=== PATIENT | male | born 1990 | race Caucasian/White ===

== ENCOUNTER → 2017-01-22 | Outpatient (CLI) | payer OTHER ==
[~2017-01-22] MED LIST: ALBUTEROL0.09 MG/A2 INH; ANAPROX DS550 MG PO; AUGMENTIN 875875 MG PO; CLARITIN-D 10 M1 T21 PO; DEPAKOTE125 MG PO; FLAGYL500 MG PO; KEFLEX500 MG PO; MOTRIN800 MG PO; PRILOSEC10 M1 PO; PROZAC20 MG PO; TESSALON PERLE200 MG PO; XANAX1 MG PO; ZITHROMAX Z PA250 MG PO
== END | disposition home or self-care (01) ==
LOC: LAB 10:29
DX: Z51.81 Encounter for therapeutic drug level monitoring (principal); Z79.899 Other long term (current) drug therapy

== ENCOUNTER → 2019-02-19 | Outpatient (CLI) | payer OTHER ==
[2019-02-19 11:39] LABS: BASO # 0.1 10*3/uL (0.0-0.1); BASO % 0.8 % (0.0-1.0); EOS # 0.5 10*3/uL (0.0-0.4); EOS % 5.1 % (1.0-4.0); HEMATOCRIT 47.1 % (42.0-52.0); HEMOGLOBIN 16.3 g/dl (14.0-18.0); LYMPH # 2.8 10*3/uL (1.3-4.4); LYMPH % 29.8 % (27.0-41.0); MEAN CELL VOLUME 86.1 fl (80.0-94.0); MEAN CORPUSCULAR HGB 29.8 pg (27.0-31.0); MEAN CORPUSCULAR HGB CONC 34.6 g/dl (33.0-37.0); MEAN PLATELET VOLUME 8.9 fl (9.6-12.3); MONO # 0.8 10*3/uL (0.1-1.0); MONO % 8.8 % (3.0-9.0); NEUT # 5.3 10*3/uL (2.3-7.9); NEUT % 55.2 % (47.0-73.0); PLATELET COUNT AUTOMATED 310 10*3/uL (130-400); RED BLOOD COUNT 5.47 10*6/uL (4.50-5.90); RED CELL DISTRI WIDTH 12.2 % (0-14.5); WHITE BLOOD COUNT 9.5 10*3/uL (4.8-10.8)
[2019-02-19 12:09] LABS: ALBUMIN 3.8 gm/dl (3.1-4.5); BUN 16 mg/dl (7-24); CHLORIDE 105 mmol/L (98-107); CHOLESTEROL 188 mg/dL (<200); CREATININE 1.31 mg/dL (0.70-1.30); POTASSIUM 3.8 mmol/L (3.5-5.1); SGOT/AST 58 IU/L (3-35); SGPT/ALT 106 U/L (12-78); SODIUM 138 mmol/L (136-145); TOTAL PROTEIN 7.7 gm/dL (6.4-8.2); TRIGLYCERIDES 284 mg/dl (<150); VLDL CHOLESTEROL 57 mg/dL (6-40)
[2019-02-19 12:21] LABS: ALKALINE PHOSPHATASE 88 U/L (45-117); HDL CHOLESTEROL 44 mg/dl (40-60); LDL CHOLESTEROL 87 mg/dL (9-159); VALPROIC ACID (DEPAKENE) 20.6 ug/ml (50-100)
== END | disposition home or self-care (01) ==
LOC: LAB 11:00
PROVIDERS: Nurse Practitioner Family
DX: Z51.81 Encounter for therapeutic drug level monitoring (principal); Z79.899 Other long term (current) drug therapy

== ENCOUNTER 2020-08-23 22:34 | Emergency (ER) | payer OTHER ==
[2020-08-23] MEDS ORDERED: PENICILLIN VK500 MG PO (22:51)
== END 2020-08-23 23:00 | disposition home or self-care (01) ==
LOC: ED 22:34
DX: K02.9 Dental caries, unspecified (principal); K08.89 Other specified disorders of teeth and supporting structures; F41.9 Anxiety disorder, unspecified; F31.9 Bipolar disorder, unspecified; Z88.8 Allergy status to other drugs, medicaments and biological substances; Z79.899 Other long term (current) drug therapy; Z98.890 Other specified postprocedural states

== ENCOUNTER → 2020-10-11 | Outpatient (CLI) | payer OTHER ==
[~2020-10-11] MED LIST changes: +PENICILLIN VK500 MG PO
== END | disposition home or self-care (01) ==
LOC: LAB 13:19
PROVIDERS: ATTEND Nurse Practitioner
DX: Z51.81 Encounter for therapeutic drug level monitoring (principal); Z79.899 Other long term (current) drug therapy

== ENCOUNTER → 2021-08-08 | Outpatient (CLI) | payer OTHER | END | disposition home or self-care (01) | LOC: LAB 08:59 | PROVIDERS: ATTEND Nurse Practitioner | DX: Z51.81 Encounter for therapeutic drug level monitoring (principal); Z79.899 Other long term (current) drug therapy ==

== ENCOUNTER 2021-09-16 04:42 | Emergency (ER) | payer OTHER ==
[~2021-09-16] VITALS: Ht 180.3 cm; Wt 117.9 kg
[2021-09-16 05:28] LABS: BILIRUBIN Negative (Negative); BLOOD Negative (Negative); CLARITY Clear (Clear); COLOR Yellow (Yellow); GLUCOSE Negative (Negative); KETONE Negative (Negative); LEUKO ESTERASE Negative (Negative); NITRITE Negative (Negative); SPECIFIC GRAVITY >= 1.030 (1.001-1.030)
[2021-09-16 05:55] LABS: BACTERIA 1+; MUCOUS 2+
[2021-09-16 05:56] LABS: ALKALINE PHOSPHATASE 80 U/L (45-117); BUN 16 mg/dl (7-24); CHLORIDE 107 mmol/L (98-107); CREATININE 1.16 mg/dL (0.70-1.30); LIPASE 126 U/L (73-393); POTASSIUM 3.8 mmol/L (3.5-5.1); SGOT/AST 43 IU/L (3-35); SGPT/ALT 82 U/L (12-78); SODIUM 137 mmol/L (136-145); TOTAL PROTEIN 7.6 gm/dL (6.4-8.2)
[2021-09-16 06:07] LABS: BASO # 0.1 10*3/uL (0.0-0.1); BASO % 0.8 % (0.0-1.0); EOS # 0.7 10*3/uL (0.0-0.4); EOS % 6.1 % (1.0-4.0); HEMATOCRIT 45.2 % (42.0-52.0); LYMPH # 3.8 10*3/uL (1.3-4.4); LYMPH % 34.1 % (27.0-41.0); MEAN CELL VOLUME 84.6 fl (80.0-94.0); MEAN CORPUSCULAR HGB 30.1 pg (27.0-31.0); MEAN CORPUSCULAR HGB CONC 35.6 g/dl (33.0-37.0); MONO # 0.9 10*3/uL (0.1-1.0); MONO % 7.8 % (3.0-9.0); NEUT # 5.7 10*3/uL (2.3-7.9); PLATELET COUNT AUTOMATED 310 10*3/uL (130-400); RED BLOOD COUNT 5.34 10*6/uL (4.50-5.90); RED CELL DISTRI WIDTH 12.2 % (0-14.5); WHITE BLOOD COUNT 11.1 10*3/uL (4.8-10.8)
== END 2021-09-16 07:42 | disposition home or self-care (01) ==
LOC: ED 04:42
PROVIDERS: Emergency Medicine
DX: K80.50 Calculus of bile duct without cholangitis or cholecystitis without obstruction (principal); Z88.1 Allergy status to other antibiotic agents; Z88.8 Allergy status to other drugs, medicaments and biological substances; Z79.899 Other long term (current) drug therapy

== ENCOUNTER → 2022-03-10 | Outpatient (CLI) | payer OTHER | END | disposition home or self-care (01) | LOC: LAB 13:11 | PROVIDERS: ATTEND Nurse Practitioner | DX: Z51.81 Encounter for therapeutic drug level monitoring (principal); Z79.899 Other long term (current) drug therapy ==

== ENCOUNTER → 2022-06-26 | Outpatient (CLI) | payer OTHER ==
[2022-06-26 09:56] LABS: BASO # 0.1 10*3/uL (0.0-0.1); BASO % 0.8 % (0.0-1.0); EOS # 0.6 10*3/uL (0.0-0.4); EOS % 6.1 % (1.0-4.0); HEMATOCRIT 48.4 % (42.0-52.0); LYMPH # 3.2 10*3/uL (1.3-4.4); LYMPH % 33.3 % (27.0-41.0); MEAN CELL VOLUME 85.1 fl (80.0-94.0); MEAN CORPUSCULAR HGB 29.3 pg (27.0-31.0); MEAN CORPUSCULAR HGB CONC 34.5 g/dl (33.0-37.0); MEAN PLATELET VOLUME 8.7 fl (9.6-12.3); MONO # 0.9 10*3/uL (0.1-1.0); NEUT # 4.8 10*3/uL (2.3-7.9); NEUT % 50.6 % (47.0-73.0); PLATELET COUNT AUTOMATED 323 10*3/uL (130-400); RED BLOOD COUNT 5.69 10*6/uL (4.50-5.90); RED CELL DISTRI WIDTH 12.7 % (0-14.5); WHITE BLOOD COUNT 9.5 10*3/uL (4.8-10.8)
[2022-06-26 10:23] LABS: ALKALINE PHOSPHATASE 81 U/L (46-116); BUN 14 mg/dl (9-23); CHLORIDE 104 mmol/L (98-107); CHOLESTEROL 198 mg/dL (<200); LDL CHOLESTEROL 114 mg/dL (9-159); POTASSIUM 3.8 mmol/L (3.4-5.1); SGPT/ALT 72 U/L (10-49); TOTAL PROTEIN 7.6 gm/dL (6.0-8.0); TRIGLYCERIDES 210 mg/dl (<150)
== END | disposition home or self-care (01) ==
LOC: LAB 09:08
PROVIDERS: ATTEND Nurse Practitioner
DX: Z51.81 Encounter for therapeutic drug level monitoring (principal); Z79.899 Other long term (current) drug therapy

== ENCOUNTER 2022-06-29 18:30 | Emergency (ER) | payer OTHER ==
[~2022-06-29] VITALS: Wt 120.2 kg
[2022-06-29] MEDS ORDERED: HYDROCODONE-AC1 EACH PO (18:56)
== END 2022-06-29 19:36 | disposition home or self-care (01) ==
LOC: ED 18:30
DX: T23.211A Burn of second degree of right thumb (nail), initial encounter (principal); T31.0 Burns involving less than 10% of body surface; X10.2XXA Contact with fats and cooking oils, initial encounter; Y93.89 Activity, other specified; Y92.89 Other specified places as the place of occurrence of the external cause; Y99.8 Other external cause status

== ENCOUNTER → 2025-06-02 | Outpatient (CLI) | payer OTHER ==
[~2025-06-02] MED LIST changes: +HYDROCODONE-AC1 EACH PO
[2025-06-02 10:40] LABS: BILIRUBIN Negative (Negative); BLOOD Negative (Negative); CLARITY Clear (Clear); COLOR Yellow (Yellow); KETONE Negative (Negative); LEUKO ESTERASE Negative (Negative); NITRITE Negative (Negative); PH 5.5 (4.5-8.0); SPECIFIC GRAVITY 1.025 (1.001-1.030); UROBILINOGEN 0.2 E.U./dl (0.0-1.0)
[2025-06-02 11:01] LABS: BACTERIA TRACE; MUCOUS TRACE; WBC 0-2 wbc/hpf (0-5)
== END | disposition home or self-care (01) ==
LOC: LAB 09:33 → RESCLI 09:33
PROVIDERS: Student in an Organized Health Care Education/Training Program; ATTEND Internal Medicine
DX: R36.1 Hematospermia (principal)